=== PATIENT | male | born 1965 | race Caucasian/White ===

== ENCOUNTER 2021-04-12 19:11 | Observation (INO) | payer BC ==
[~2021-04-12] VITALS: Ht 170.2 cm; Wt 118.7 kg
[2021-04-12] MEDS ORDERED: BLOOD PRESSURE PO (19:28)
[2021-04-12 20:24] LABS: BASO % 0.6 % (0.0-1.0); EOS # 0.4 10^3/uL (0.0-0.5); EOS % 5.1 % (0.0-3.0); HEMATOCRIT 43.7 % (42.0-52.0); HEMOGLOBIN 14.5 g/dl (13.5-17.5); LYMPH # 2.3 10^3/uL (1.5-5.0); LYMPH % 31.8 % (24.0-44.0); MEAN CORPUSCULAR HEMOGLOBIN 28.7 pg (27.0-33.0); MEAN CORPUSCULAR HGB CONC 33.2 g/dl (32.0-36.5); MEAN CORPUSCULAR VOLUME 86.5 fl (80.0-96.0); MONO # 0.7 10^3/uL (0.0-0.8); MONO % 10.2 % (2.0-8.0); NEUTROPHILS # 3.8 10^3/uL (1.5-8.5); PLATELET COUNT, AUTOMATED 255 10^3/uL (150-450); RED BLOOD COUNT 5.05 10^6/uL (4.30-6.10); WHITE BLOOD COUNT 7.3 10^3/uL (4.0-10.0)
[2021-04-12 20:54] LABS: ALBUMIN 3.4 GM/DL (3.2-5.2); ALT/SGPT 30 U/L (12-78); BILIRUBIN,DIRECT < 0.1 MG/DL (0.0-0.2); BILIRUBIN,TOTAL 0.3 MG/DL (0.2-1.0); BLOOD UREA NITROGEN 19 MG/DL (7-18); CALCIUM LEVEL 8.9 MG/DL (8.5-10.1); CARBON DIOXIDE LEVEL 28 MEQ/L (21-32); CHLORIDE LEVEL 109 MEQ/L (98-107); GLOMERULAR FILTRATION RATE > 60.0 (>56); GLUCOSE, FASTING 138 MG/DL (70-100); LIPASE 193 U/L (73-393); POTASSIUM SERUM 4.3 MEQ/L (3.5-5.1); SODIUM LEVEL 142 MEQ/L (136-145); TOTAL PROTEIN 7.4 GM/DL (6.4-8.2)
[2021-04-12] MEDS ORDERED: ISOVUE-370 76% 100ML VIAL As Ordered ONE (21:12)
--- NOTE | 2021-04-12 22:21 | REPVR ---
PROCEDURE INFORMATION: Exam: CT Abdomen And Pelvis With Contrast Exam date and time: 04/12/2021 9:19 PM Age: 56 years old Clinical indication: Abdominal pain; Localized; Lower; Additional info: Rlq, llq pain TECHNIQUE: Imaging protocol: Computed tomography of the abdomen and pelvis with contrast. Radiation optimization: All CT scans at this facility use at least one of these dose optimization techniques: automated exposure control; mA and/or kV adjustment per patient size (includes targeted exams where dose is matched to clinical indication); or iterative reconstruction. Contrast material: ISOVUE 370; Contrast volume: 100 ml; Contrast route: INTRAVENOUS (IV); COMPARISON: No relevant prior studies available. FINDINGS: Liver: Normal. No mass. Gallbladder and bile ducts: Normal. No calcified stones. No ductal dilation. Pancreas: Normal. No ductal dilation. Spleen: Normal. No splenomegaly. Adrenal glands: Normal. No mass. Kidneys and ureters: 3.2 cm cyst in the upper pole of right kidney. Stomach and bowel: Unremarkable. No obstruction. No mucosal thickening. Appendix: There is appendix is prominent measuring 9 mm with subtle periappendiceal fat stranding Intraperitoneal space: Unremarkable. No free air. No significant fluid collection. Vasculature: Unremarkable. No abdominal aortic aneurysm. Lymph nodes: Unremarkable. No enlarged lymph nodes. Urinary bladder: Unremarkable as visualized. Reproductive: Unremarkable as visualized. Bones/joints: Unremarkable. No acute fracture. Soft tissues: Unremarkable. IMPRESSION: Appendix is prominent with subtle periappendiceal fat stranding. Findings suspicious for early acute appendicitis. Clinical correlation. COMMENTS: Consistent with the [employer]'s Incidental Findings Committee white paper (J Am Bonnie Radiol 2018): Any incidental renal lesion less than 1 cm or classified as too small to characterize, or any incidental cystic renal lesion characterized as simple-appearing, is likely benign. No follow-up imaging is recommended for these lesions per consensus recommendations based on imaging criteria. . Electronically signed by: Jose Raul Black On 04/12/2021 22:20:36 PM
[2021-04-12] MEDS ORDERED: NS 1,000 ML IV SCH (23:15)
[2021-04-12] MEDS ORDERED: ONDANSETRON 4MG/2ML VIAL IV PRN (23:15)
[2021-04-12] MEDS ORDERED: KETOROLAC 30 MG/ML 1ML VIAL IV PRN (23:15)
[2021-04-12] MEDS: PIPERACILLIN/TAZOBACTAM SOD 3.375 GM in D5W MINI-BAG PLUS 50 ML IV SCH (23:42)
[2021-04-12] MEDS ORDERED: BUSP15TA47 PO (23:51)
[2021-04-12] MEDS ORDERED: LISI10TA22 PO (23:51)
[2021-04-12] MEDS ORDERED: BUPR300T92 PO (23:51)
[2021-04-12] MEDS ORDERED: LEXA1TAB2 PO (23:51)
[2021-04-12] MEDS ORDERED: CLON1TAB8 PO (23:51)
[2021-04-12] MEDS ORDERED: SUMA100T2 PO (23:51)
[2021-04-13 00:30] LABS: RSV AMPLIFICATION NEGATIVE (NEGATIVE)
[2021-04-13 01:15] VITALS: BP 154/77
[2021-04-13] MEDS: PIPERACILLIN/TAZOBACTAM SOD 3.375 GM in D5W MINI-BAG PLUS 50 ML IV SCH (05:36)
[2021-04-13 06:00] VITALS: BP 139/93
[2021-04-13 06:33] LABS: BASO # 0.1 10^3/uL (0.0-0.2); BASO % 0.9 % (0.0-1.0); EOS # 0.3 10^3/uL (0.0-0.5); EOS % 5.5 % (0.0-3.0); HEMOGLOBIN 13.5 g/dl (13.5-17.5); LYMPH # 1.9 10^3/uL (1.5-5.0); LYMPH % 32.9 % (24.0-44.0); MEAN CORPUSCULAR HEMOGLOBIN 28.7 pg (27.0-33.0); MEAN CORPUSCULAR HGB CONC 32.1 g/dl (32.0-36.5); MEAN CORPUSCULAR VOLUME 89.2 fl (80.0-96.0); MONO # 0.6 10^3/uL (0.0-0.8); MONO % 10.8 % (2.0-8.0); NEUTROPHILS # 2.9 10^3/uL (1.5-8.5); NEUTROPHILS % 49.7 % (36.0-66.0); PLATELET COUNT, AUTOMATED 218 10^3/uL (150-450); RED BLOOD COUNT 4.71 10^6/uL (4.30-6.10); WHITE BLOOD COUNT 5.8 10^3/uL (4.0-10.0)
[2021-04-13] MEDS ORDERED: AUGM875T28 PO (08:53)
--- NOTE | 2021-04-14 10:23 | HPE ---
HISTORY AND PHYSICAL DATE OF ADMISSION: 04/13/2021 CHIEF COMPLAINT: Abdominal pain. HISTORY OF PRESENT ILLNESS: The patient is a 56-year-old male who presented last evening to the emergency room with complaints of abdominal pain that had been persistent for the past three days. He says that the pains are more in the evening and do slightly let up during the day. No problems with any nausea or vomiting, no fevers or chills. No trauma to the abdomen. No prior history of abdominal pains like this in the past. He was concerned of possible UTI so he was waiting it out but when things were not improving and he had no problems with urinating he decided to come to the hospital for evaluation. In the ER his labs were all normal. Vitals were stable. CT showed questionable early appendicitis; otherwise everything else was within normal range. I admitted him overnight with IV antibiotics and clear liquid diet to see how he felt this morning. This morning his pain is minimal but it is much improved. No fevers, no chills, tolerating diet. MEDICAL HISTORY: Sleep apnea, migraines, hypertension. SURGICAL HISTORY: Tonsillectomy. ALLERGIES: NONE. HOME MEDS: Please see [facility]. SOCIAL HISTORY: Social alcohol, denies drugs or tobacco abuse. FAMILY HISTORY: Noncontributory. REVIEW OF SYSTEMS: Pertinent positive and negatives per HPI. PHYSICAL EXAMINATION: GENERAL: A&O x3, no acute distress. VITAL SIGNS: Temp 97, pulse 68, respirations 20, blood pressure 139/93, pulse ox 97% on room air. HEENT: Pupils equal, round and reactive to light and accommodation. HEART: S1, S2, regular rate and rhythm. LUNGS: Clear to auscultation bilaterally. ABDOMEN: Soft, nontender, non-distended. EXTREMITIES: No cyanosis, clubbing or edema. LABS: White count 5.8 down from 7.3 yesterday, hemoglobin 13.5, platelets 218. Potassium 4.3, creatinine 1. IMAGING: CT of abdomen and pelvis in emergency room showed slightly prominent appendix at 9 mm was subtle. Appendiceal fat stranding suspicious for early acute appendicitis. ASSESSMENT/PLAN: The patient is a 56-year-old male with mild acute appendicitis already showing signs of improvement with antibiotics. Plan is to discharge home. Regular diet. PO antibiotics for five days. If his pain starts to get worse he can return for reevaluation. Otherwise, he can follow up in the office as needed.
== END 2021-04-13 09:57 | disposition home or self-care (01) ==
LOC: M ED 19:11 → M ED INP 19:12 → ENRESERVTM 04-13 00:36 → ENRESERVDT 04-13 00:36 → M MSPAV 04-13 01:15
PROVIDERS: ADMIT Surgery; ATTEND Surgery
DX: K35.890 Other acute appendicitis without perforation or gangrene (principal); G47.33 Obstructive sleep apnea (adult) (pediatric); I10 Essential (primary) hypertension; G43.909 Migraine, unspecified, not intractable, without status migrainosus
CPT/HCPCS: 36415; 74177; 80048; 80076; 81001; 83690; 85025; 87631; 93041; 96365; 96366; 99284; J2543; Q9967

== ENCOUNTER → 2021-05-16 | Outpatient (CLI) | payer BC ==
[~2021-05-16] MED LIST: AUGM875T28 PO; BLOOD PRESSURE PO; BUPR300T92 PO; BUSP15TA47 PO; CLON1TAB8 PO; LEXA1TAB2 PO; LISI10TA22 PO; SUMA100T2 PO
[2021-05-16 12:35] LABS: HEMATOCRIT 44.2 % (42.0-52.0); HEMOGLOBIN 14.4 g/dl (13.5-17.5); MEAN CORPUSCULAR HEMOGLOBIN 28.7 pg (27.0-33.0); MEAN CORPUSCULAR HGB CONC 32.6 g/dl (32.0-36.5); PLATELET COUNT, AUTOMATED 213 10^3/uL (150-450); RED BLOOD COUNT 5.02 10^6/uL (4.30-6.10); WHITE BLOOD COUNT 5.8 10^3/uL (4.0-10.0)
[2021-05-16 13:00] LABS: ALBUMIN 3.5 GM/DL (3.2-5.2); ALT/SGPT 37 U/L (12-78); BILIRUBIN,TOTAL 0.3 MG/DL (0.2-1.0); BLOOD UREA NITROGEN 15 MG/DL (7-18); CALCIUM LEVEL 9.3 MG/DL (8.5-10.1); CARBON DIOXIDE LEVEL 26 MEQ/L (21-32); CHLORIDE LEVEL 113 MEQ/L (98-107); CHOLESTEROL LEVEL 260 MG/DL (<200); CHOLESTEROL RISK RATIO 8.125 (<5); CREATININE FOR GFR 0.95 MG/DL (0.70-1.30); GLOMERULAR FILTRATION RATE > 60.0 (>56); GLUCOSE, FASTING 98 MG/DL (70-100); HDL CHOLESTEROL 32 MG/DL (>40); LDL CHOLESTEROL 175 MG/DL (<100); NON-HDL-C 228 MG/DL; POTASSIUM SERUM 4.4 MEQ/L (3.5-5.1); SODIUM LEVEL 144 MEQ/L (136-145); TRIGLYCERIDES LEVEL 263 MG/DL (<150)
== END ==
LOC: M WUC 08:43
DX: F41.9 Anxiety disorder, unspecified (principal); E78.00 Pure hypercholesterolemia, unspecified